=== PATIENT | female | born 1980 | race American Indian/Alaskan Native ===

== ENCOUNTER 2017-08-13 12:51 | Emergency (ER) | payer OTHER ==
--- NOTE | 2017-08-13 13:20 | ED PDOC ---
Arrival/HPI - General Chief Complaint: Needle Stick Time Seen by Provider: 08/13/17 13:11 Historian: Patient - History of Present Illness Narrative History of Present Illness (Text): 08/13/17 13:20 A 37 year old female, who denies any past medical history, presents to the emergency department for evaluation. 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 No bleeding noted. She reports the patient does not history of HIV or hepatitis. Patient denies any fever, chills, nausea, vomiting, abdominal pain , chest pain, shortness of breath or any other complaints. Patients tetanus shot is up to date. PMD: None Time/Duration: Prior to Arrival Context: Work Past Medical History - Provider Review Nursing Documentation Reviewed: Yes - Infectious Disease Hx of Infectious Diseases: None - Reproductive Menopause: No - Psychiatric Hx Substance Use: No Family/Social History - Physician Review Nursing Documentation Reviewed: Yes Family/Social History: No Known Family HX Smoking Status: Unknown If Ever Smoked Hx Alcohol Use: Yes Frequency of alcohol use: Socially Hx Substance Use: No Allergies/Home Meds Allergies/Adverse Reactions: Allergies shellfish derived Allergy (Verified 08/13/17 13:06) ANAPHYLAXIS Home Medications: Home Meds Medication Instructions Recorded Confirmed No Known Home Med 08/13/17 08/13/17 Review of Systems - Physician Review All systems were reviewed & negative as marked: Yes - Review of Systems Constitutional: Normal. absent: Fevers, Night Sweats Respiratory: absent: SOB Cardiovascular: absent: Chest Pain Gastrointestinal: absent: Abdominal Pain, Nausea, Vomiting Physical Exam Vital Signs Reviewed: Yes Vital Signs Temp Pulse Resp BP Pulse Ox 08/13/17 13:50 97.9 F 90 17 125/81 98 Temperature: Afebrile Blood Pressure: Normal Pulse: Regular Respiratory Rate: Normal Appearance: Positive for: Well-Appearing, Non-Toxic, Comfortable Pain Distress: None Mental Status: Positive for: Alert and Oriented X 3 - Systems Exam Head: Present: Atraumatic, Normocephalic Pupils: Present: PERRL Extroacular Muscles: Present: EOMI Conjunctiva: Present: Normal Upper Extremity: Present: Normal Inspection, Normal ROM, NORMAL PULSES, Tenderness (to hypothenar of right hand), Neurovascularly Intact, Other (no blood or puncture wound appreciated). No: Cyanosis, Edema, Swelling, Erythema, Temperature Abnormalties Neurological: Present: GCS=15, CN II-XII Intact, Speech Normal Skin: Present: Warm, Dry, Normal Color. No: Rashes Psychiatric: Present: Alert, Oriented x 3, Normal Insight, Normal Concentration Medical Decision Making ED Course and Treatment: 08/13/17 13:20 Impression: A 37 year old female pricked with insulin needle at work Differential Diagnosis included but are not limited to: Needle stick injury Plan: -- Labs -- Urinalysis -- Reassess and disposition Progress Notes: Discussed with patient the option in starting HIV prophylaxis since there is a possibility of transmission. Considering her low risk she does not want the medication at this time. 08/13/17 15:10 I have discussed the lab results and plan with the patient, who expresses understanding. Patient in agreement with plan to be discharged home. Patient is stable for discharge. Patient was referred to primary care provider Dr. Smalls, and instructed to follow up or return if symptoms worsen or new concerning symptoms arise. - Lab Interpretations Lab Results: 08/13/17 13:40 08/13/17 13:40 Lab Results 08/13/17 13:50: Urine Color Yellow, Urine Appearance Clear, Urine pH 7.0, Ur Specific [place] 1.015, Urine Protein Negative, Urine Glucose (UA) Negative, Urine Ketones Negative, Urine Blood Negative, Urine Nitrate Negative, Urine Bilirubin Negative, Urine Urobilinogen 0.2, Ur Leukocyte Esterase Negative 08/13/17 13:40: RPR Nonreactive 08/13/17 13:40: Hep Bs Antibody Positive 08/13/17 13:40: Hepatitis A IgM Ab Negative, Hep Bs Antigen Negative, Hep B Core IgM Ab Negative, Hepatitis C Antibody Negative 08/13/17 13:40: Sodium 137, Potassium 3.7, Chloride 103, Carbon Dioxide 25, Anion Gap 13, BUN 10, Creatinine 0.7, Est GFR ( Amer) > 60, Est GFR (Non- Af Amer) > 60, Random Glucose 95, Calcium 10.2, Total Bilirubin 0.3, AST 29, ALT 35, Alkaline Phosphatase 73, Total Protein 7.8, Albumin 4.3, Globulin 3.5, Albumin/Globulin Ratio 1.2, Amylase 71 08/13/17 13:40: WBC 8.3 D, RBC 4.84, Hgb 12.1, Hct 38.9, MCV 80.4, MCH 25.0, MCHC 31.1, RDW 14.3, Plt Count 300, MPV 9.3, Gran % 48.6 L, Lymph % (Auto) 40.7 H, [place] % (Auto) 7.6 H, Eos % (Auto) 2.7, Baso % (Auto) 0.4, Gran # 4.03, Lymph # 3.4, [place] # 0.6, Eos # 0.2, Baso # 0.03 08/13/17 11:40: HIV-1 Ab Rapid Screen Non reactive I have reviewed the lab results: Yes - Scribe Statement The provider has reviewed the documentation as recorded by the Kofiibfarideh Clancy Provider Scribe Attestation: All medical record entries made by the Scribe were at my direction and personally dictated by me. I have reviewed the chart and agree that the record accurately reflects my personal performance of the history, physical exam, medical decision making, and the department course for this patient. I have also personally directed, reviewed, and agree with the discharge instructions and disposition. Disposition/Present on Arrival - Present on Arrival Any Indicators Present on Arrival: No History of DVT/PE: No History of Uncontrolled Diabetes: No Urinary Catheter: No History of Decub. Ulcer: No History Surgical Site Infection Following: None - Disposition Have Diagnosis and Disposition been Completed?: Yes Diagnosis: Needle stick injury Disposition: HOME/ ROUTINE Disposition Time: 15:10 Patient Plan: Discharge Condition: GOOD Discharge Instructions (ExitCare): Needle Stick Injuries (ED) Additional Instructions: Ms Spivey, thank you for letting us take care of you today. Your provider was Dr. Rose. You were treated for Cora Stick. The emergency medical care you received today was directed at your acute symptoms. If you were prescribed any medication, please fill it and take as directed. It may take several days for your symptoms to resolve. Return to the Emergency Department if your symptoms worsen, do not improve, or if you have any other problems. Please contact your doctor or call one of the physicians/clinics you have been referred to that are listed on the Patient Visit Information form that is included in your discharge packet. Bring any paperwork you were given at discharge with you along with any medications you are taking to your follow up visit. Our treatment cannot replace ongoing medical care by a primary care provider (PCP) outside of the emergency department. Thank you for allowing the [facility] team to be part of your care today. If you had an X-Ray or CT scan: A Radiologist will review the ED reading if any change in treatment is needed we will contact you. If you had a blood, urine, or wound culture: It will take several days for the results, if any change in treatment is needed we will contact you. If you had an STI test: It will take 48 hours for the results. Please call after 1 week if you have not heard back. Referrals: Danilo Smalls, DO [Staff Provider] - Follow up with primary Forms: [employer] ([place]), WORK NOTE
[2017-08-13 13:52] VITALS: BP 125/81; PULSE 90; RESP 17; TEMP 97.9; O2SAT 98
[2017-08-13 13:56] LABS: BASO # 0.03 K/mm3 (0.0-2.0); BASO % 0.4 % (0.0-3.0); EOS # 0.2 (0.0-0.7); EOS % 2.7 % (1.5-5.0); GRAN # 4.03 (1.4-6.5); GRAN % 48.6 % (50.0-68.0); HEMOGLOBIN 12.1 g/dL (12.0-16.0); LYMPH # 3.4 (1.2-3.4); LYMPH % 40.7 % (22.0-35.0); MEAN CELL VOLUME 80.4 fl (80.0-105.0); MEAN CORPUSCULAR HGB CONC 31.1 g/dl (31.0-37.0); MEAN PLATELET VOLUME 9.3 fl (7.0-11.0); MONO # 0.6 (0.1-0.6); MONO % 7.6 % (1.0-6.0); RBC 4.84 10^6/uL (3.5-6.1); RED CELL DISTRIBUTION WIDTH 14.3 % (11.5-14.5); WHITE BLOOD COUNT 8.3 10^3/ul (4.5-11.0)
[2017-08-13 13:56] LABS: URINE APPEARANCE CLEAR (CLEAR); URINE BILIRUBIN NEGATIVE (NEGATIVE); URINE BLOOD NEGATIVE (NEGATIVE); URINE COLOR YELLOW (YELLOW); URINE GLUCOSE (UA) NEGATIVE (NEGATIVE); URINE LEUKOCYTE ESTERASE NEGATIVE Leu/uL (NEGATIVE); URINE NITRATE NEGATIVE (NEGATIVE); URINE PROTEIN NEGATIVE mg/dL (<30 mg/dL); URINE UROBILINOGEN 0.2 E.U./dL (<1 E.U./dL)
[2017-08-13 14:14] LABS: ALB/GLOB RATIO 1.2 (1.1-1.8); ALBUMIN 4.3 g/dL (3.0-4.8); ALT/SGPT 35 U/L (7-56); AMYLASE 71 U/L (35-125); AST/SGOT 29 U/L (14-36); BLOOD UREA NITROGEN 10 mg/dL (7-21); CALCIUM 10.2 mg/dL (8.4-10.5); GFR AFRICAN-AMERICAN > 60; GFR NON-AFRICAN AMERICAN > 60
[2017-08-13 21:10] LABS: HEPATITIS B SURFACE AG Negative (NEGATIVE)
[2017-08-13 21:16] LABS: HEPATITIS A IGM NEGATIVE (NEGATIVE); HEPATITIS B CORE AB NEGATIVE (NEGATIVE)
[2017-08-13 21:28] LABS: HEPATITIS C ANTIBODY NEGATIVE (NEGATIVE)
== END 2017-08-13 15:19 | disposition home or self-care (01) ==
LOC: ED 12:51
DX: S61.431A Puncture wound without foreign body of right hand, initial encounter (principal); W46.0XXA Contact with hypodermic needle, initial encounter; Y93.F9 Activity, other caregiving; Y92.89 Other specified places as the place of occurrence of the external cause; Y99.0 Civilian activity done for income or pay